=== PATIENT | female | born 1990 | race Caucasian/White ===

== ENCOUNTER 2016-08-13 20:08 | Emergency (ER) | payer SELFPAY ==
--- NOTE | ~2016-08-13 | CT2 ---
[facility] A Service of [facility] / [facility] RADIOLOGY TEXT RESULTS PATIENT: JAMESON STOLL LOCATION: SED : 88 UNIT #: [id number] AGE: [address]: JUAN MANUEL BLACKMAN SEX: F ORDER DR: [id number] [place] [id number] E MR#: [id number] Acc #: [id number] NAME: JAMESON STOLL. : 1990 SEX: F STUDY DATE/TIME: 08/13/2016 21:41 UNIT: SED ROOM: STUDY DESCRIPTION: CT Abd and Pelv W Cont Attending Physician: Juan Manuel Blackman Aprn Ordering Physician: Juan Manuel Blackman Aprn Primary Care Physician: Kristin Johnson Aprn MEDICAL IMAGING REPORT This report is preliminary unless electronic signature is present. EXAM CT scan of the abdomen and pelvis with contrast, 08/13/2016 HISTORY Vomiting and diarrhea for 10 days all within 15 minutes of eating. TECHNIQUE Spiral CT was performed through the abdomen and pelvis following intravenous contrast administration only as per clinician request. This CT exam was performed with one or more of the following radiation dose reduction techniques: automatic exposure control, adjustment of mA and/or kV according to patient size, and iterative reconstruction. FINDINGS ABDOMEN: The exam is limited by the lack of oral contrast. The liver, spleen, pancreas, gallbladder and biliary tree, adrenal glands and kidneys are normal. PELVIS: The gut, mesenteric and jose structures are normal. There is no free fluid in the abdomen or pelvis. IMPRESSION Negative. Dictated by... Dipesh Wills M.D. THIS IS AN ELECTRONICALLY VERIFIED REPORT Dipesh Wills M.D. at 08/14/2016 10:47 AM BEN/brenna [facility] A Service [facility] RADIOLOGY TEXT RESULTS PATIENT: JAMESON STOLL LOCATION: SED : 89 UNIT #: [id number] AGE: [address]: JUAN MANUEL BLACKMAN SEX: F ORDER DR: TD: 08/14/2016 08:50 JOB #: [id number] MEDICAL IMAGING REPORT Page 1 of 1
[2016-08-13 19:44] LABS: URINE SOURCE CLEAN CATCH
[2016-08-13 19:47] LABS: URINE APPEARANCE CLEAR; URINE BILIRUBIN NEG (NEG); URINE BLOOD NEG (NEG); URINE COLOR YELLOW; URINE GLUCOSE NEG (NORM); URINE KETONE NEG (NEG); URINE LEUKOCYTE ESTERASE NEG (NEG); URINE NITRATE NEG (NEG); URINE PROTEIN NEG (NEG); URINE SPECIFIC GRAVITY <=1.005 (1.003-1.035); URINE UROBILINOGEN 0.2 MG/DL (NORM)
[2016-08-13 19:48] LABS: MICRO INDICATED? NO
[2016-08-13 19:50] LABS: BASOPHIL# 0.1 X10e3 (0-0.3); BASOPHIL% 0.9 % (0-2.5); DIFF IND NO; EOSINOPHIL% 0.2 % (0.0-7.0); HEMATOCRIT 46.2 % (35.0-45.0); HEMOGLOBIN 15.4 gm/dL (12.0-16.0); LYMPHOCYTE% 31.5 % (17.0-45.0); MEAN CELL VOLUME 92.5 FL (83-96); MEAN CORPUSCULAR HEMOGLOBIN 30.8 PG (28-34); MEAN CORPUSCULAR HGB CONC 33.3 g/dL (30-36); MEAN PLATELET VOLUME 7.8 FL (6.5-11.5); MONOCYTE# 0.6 X10e3 (0-1.0); MONOCYTE% 5.9 % (3.0-12.0); NEUTROPHIL# 5.8 X10e3 (1.5-7.1); NEUTROPHIL% 61.5 % (40-75); PLATELET COUNT 332 X10e3 (140-420); RED BLOOD COUNT 4.99 X10e (3.90-5.30); RED CELL DISTRIBUTION WIDTH 12.8 % (11.0-15.5); WHITE BLOOD COUNT 9.5 X10e3 (4.0-10.5)
[2016-08-13 20:06] LABS: ALBUMIN SERUM 4.8 g/dL (3.5-5.0); BILIRUBIN, DIRECT 0.1 mg/dL (0.0-0.2); BILIRUBIN,INDIRECT 0.5 mg/dL (0.0-0.9); BILIRUBIN,TOTAL 0.6 mg/dL (0.2-2.0); BUN/CREATININE RATIO 12.5; CALCIUM SERUM 9.6 mg/dL (8.4-10.2); CREATININE SERUM 0.8 mg/dL (0.6-1.4); GLOM FILT RATE Estimated 101.1 mL/min (>60); POTASSIUM 3.4 mmol/L (3.5-5.1)
[~2016-08-13 20:08] MED LIST: ANSAID100 MG PO; BACTRIM DS TABL1 TAB PO; BIRTH CONTROL PILL PO; CIPRO PO; CLOTRIMAZOLE/BE15 GM TOP; FLAGYL PO; FLUCONAZOLE100 MG PO; IBUPROFEN PO; NO MEDICATIONS; PHENERGAN25 M1 PO; PYRIDIUM PO; SEPTRA DS PO
== END 2016-08-13 22:19 | disposition home or self-care (01) ==
LOC: SED 20:08
PROVIDERS: Nurse Practitioner Family
DX: R11.2 Nausea with vomiting, unspecified (principal); R19.7 Diarrhea, unspecified; F17.210 Nicotine dependence, cigarettes, uncomplicated; J45.909 Unspecified asthma, uncomplicated; Z88.2 Allergy status to sulfonamides
CPT/HCPCS: 36415; 74177; 80048; 80076; 81003; 82150; 83690; 84703; 85025; 96361; 96374; 96375; 99284; J1885; J2405; Q9967